=== PATIENT | female | born 1955 | race Hispanic/Latino ===

== ENCOUNTER 2017-05-01 11:31 | Emergency (ER) | payer OTHER ==
[2017-05-01 11:32] VITALS: BMI 33.6
[2017-05-01 14:17] VITALS: RESP 18
--- NOTE | 2017-05-01 14:29 | ED PDOC ---
Arrival/HPI - General Chief Complaint: Fever Time Seen by Provider: 05/01/17 14:15 Historian: Patient - History of Present Illness Narrative History of Present Illness (Text): 05/01/17 14:24 61 year old female, with past medical history of hyperlipidemia and diabetes, presents to the Emergency department complaining of fever, cough and sinus congestion since Monday. Patient informs cough is mostly dry with occasional clear phlegm. Patient denies taking the flu shot this year. Patient additionally complains of mid-lower back pain, which she believes is muscular. Patient denies any chills, nausea, vomiting, diarrhea, abdominal pain, chest pain, shortness of breath, trauma, sick contact or any other complaints. PMD: Dr. Sandoval Time/Duration: < week Symptom Course: Unchanged Activities at Onset: Light Context: Home Past Medical History - Provider Review Nursing Documentation Reviewed: Yes - Pulmonary Hx Respiratory Disorders: No - Neurological Hx Neurological Disorder: No - HEENT Hx HEENT Disorder: No - Renal Hx Renal Disorder: No - Endocrine/Metabolic Hx Diabetes Mellitus Type 2: Yes - Hematological/Oncological Hx Blood Disorders: No - Integumentary Hx Dermatological Disorder: No - Musculoskeletal/Rheumatological Hx Musculoskeletal Disorders: No - Gastrointestinal Hx Gastrointestinal Disorders: No - Genitourinary/Gynecological Hx Genitourinary Disorders: No - Psychiatric Hx Psychophysiologic Disorder: No Hx Substance Use: No - Surgical History Hx Section: Yes - Anesthesia Hx Anesthesia: No Family/Social History - Physician Review Nursing Documentation Reviewed: Yes Family/Social History: No Known Family HX Smoking Status: Light Smoker < 10 Cigarettes Daily Hx Alcohol Use: No Hx Substance Use: No Allergies/Home Meds Allergies/Adverse Reactions: Allergies No Known Allergies Allergy (Verified 09/27/15 13:10) Home Medications: Home Meds Medication Instructions Recorded Confirmed Lovastatin [Lovastatin] 10 mg PO DAILY 05/23/15 09/27/15 metFORMIN [glucOPHAGE] 500 mg PO DAILY 05/23/15 09/27/15 Review of Systems - Physician Review All systems were reviewed & negative as marked: Yes - Review of Systems Constitutional: Fevers Eyes: Normal ENT: Normal Respiratory: Cough. absent: SOB Cardiovascular: Normal. absent: Chest Pain Gastrointestinal: Normal. absent: Abdominal Pain, Diarrhea, Nausea, Vomiting Genitourinary Female: Normal Musculoskeletal: Back Pain Skin: Normal Neurological: Normal Endocrine: Normal Hemo/Lymphatic: Normal Psychiatric: Normal Physical Exam Vital Signs Reviewed: Yes Vital Signs Temp Pulse Resp BP Pulse Ox 05/01/17 19:02 86 18 128/67 98 05/01/17 16:15 98.8 F 99 H 18 132/69 98 05/01/17 14:13 99.3 F 110 H 18 134/72 97 Temperature: Afebrile Blood Pressure: Normal Pulse: Tachycardic Respiratory Rate: Normal Appearance: Positive for: Well-Appearing, Non-Toxic, Comfortable Pain Distress: None Mental Status: Positive for: Alert and Oriented X 3 - Systems Exam Head: Present: Atraumatic, Normocephalic Pupils: Present: PERRL Extroacular Muscles: Present: EOMI Conjunctiva: Present: Normal Mouth: Present: Moist Mucous Membranes Neck: Present: Normal Range of Motion Respiratory/Chest: Present: Clear to Auscultation, Good Air Exchange. No: Respiratory Distress, Accessory Muscle Use Cardiovascular: Present: Regular Rate and Rhythm, Normal S1, S2. No: Murmurs Abdomen: Present: Normal Bowel Sounds. No: Tenderness, Distention, Peritoneal Signs Back: Present: Normal Inspection Upper Extremity: Present: Normal Inspection. No: Cyanosis, Edema Lower Extremity: Present: Normal Inspection. No: Edema Neurological: Present: GCS=15, CN II-XII Intact, Speech Normal Skin: Present: Warm, Dry, Normal Color. No: Rashes Psychiatric: Present: Alert, Oriented x 3, Normal Insight, Normal Concentration Medical Decision Making ED Course and Treatment: 05/01/17 14:31 Impression: 61 year old female presents to the Emergency department for fever, cough, sinus congestion and back pain. Plan: -- Labs -- Chest X-ray -- Toradol -- Influenza A/B -- Urinalysis -- Reassess and disposition Progress Notes: 05/02/17 11:25 cxr neg as read by em . labs unremarkble pt feels beter all symptoms resolve.d asking for dc. - Lab Interpretations Lab Results: 05/01/17 15:30 05/01/17 15:30 Lab Results 05/01/17 15:30: Influenza Typ A,B (EIA) Pos for influenza a H 05/01/17 15:30: Sodium 139, Potassium 4.0, Chloride 103, Carbon Dioxide 26, Anion Gap 14, BUN 13, Creatinine 0.5 L, Est GFR ( Amer) > 60, Est GFR ( Non-Af Amer) > 60, Random Glucose 121 H, Calcium 9.2, Total Bilirubin < 0.1 L, AST 23, ALT 39, Alkaline Phosphatase 68, Total Protein 6.6, Albumin 3.9, Globulin 2.8, Albumin/Globulin Ratio 1.4 05/01/17 15:30: PT 11.2, INR 0.98, APTT 33.9 05/01/17 15:30: WBC 4.8 D, RBC 4.60, Hgb 13.5, Hct 40.8, MCV 88.7, MCH 29.3, MCHC 33.1, RDW 12.6, Plt Count 204, MPV 11.0, Gran % 58.6, Lymph % (Auto) 28.2, [place] % (Auto) 10.9 H, Eos % (Auto) 2.3, Baso % (Auto) 0.0, Gran # 2.79, Lymph # (Auto) 1.3, [place] # (Auto) 0.5, Eos # (Auto) 0.1, Baso # (Auto) 0.00 - RAD Interpretation Radiology Orders: 05/01/17 14:24 CXR [CHEST TWO VIEWS (PA/LAT)] [RAD] Stat - Medication Orders Current Medication Orders: Discontinued Medications Ketorolac Tromethamine (Toradol) 30 mg IVP STAT STA Stop: 05/01/17 14:25 Last Admin: 05/01/17 15:38 Dose: 30 mg MAR Pain Assessment Document 05/01/17 15:38 EQ (Rec: 05/01/17 15:38 EQ [id number]) Pain Reassessment Is this a pain reassessment? No Presence of Pain Presence of Pain Yes IVP Administration Document 05/01/17 15:38 EQ (Rec: 05/01/17 15:38 EQ [id number]) Charges for Administration # of IVP Administrations 1 Oseltamivir Phosphate (Tamiflu Cap) 75 mg PO STAT STA PRN Reason: Protocol Stop: 05/01/17 16:19 Last Admin: 05/01/17 18:26 Dose: 75 mg - Scribe Statement The provider has reviewed the documentation as recorded by the Kiaraibnatalia Ferrell. All medical record entries made by the Scribe were at my direction and personally dictated by me. I have reviewed the chart and agree that the record accurately reflects my personal performance of the history, physical exam, medical decision making, and the department course for this patient. I have also personally directed, reviewed, and agree with the discharge instructions and disposition. Disposition/Present on Arrival - Present on Arrival Any Indicators Present on Arrival: No History of DVT/PE: No History of Uncontrolled Diabetes: No Urinary Catheter: No History of Decub. Ulcer: No History Surgical Site Infection Following: None - Disposition Have Diagnosis and Disposition been Completed?: Yes Diagnosis: Influenza Disposition: HOME/ ROUTINE Disposition Time: 07:00 Condition: STABLE Discharge Instructions (ExitCare): Influenza (ED) Additional Instructions: please follow up with your doctor. return to er with worsening symptoms or concerns. Prescriptions: Oseltamivir Phosphate [Tamiflu] 75 mg PO BID #10 capsule Referrals: Robina Ambrose MD [Primary Care Provider] - Follow up with primary Forms: [facility] (Slovak), WORK NOTE
[2017-05-01 16:04] LABS: EOS # 0.1 (0.0-0.7); EOS % 2.3 % (1.5-5.0); GRAN # 2.79 (1.4-6.5); GRAN % 58.6 % (50.0-68.0); HEMOGLOBIN 13.5 g/dL (12.0-16.0); LYMPH # 1.3 (1.2-3.4); LYMPH % 28.2 % (22.0-35.0); MEAN CELL VOLUME 88.7 fl (80.0-105.0); MEAN CORPUSCULAR HEMOGLOBIN 29.3 pg (25.0-35.0); MEAN CORPUSCULAR HGB CONC 33.1 g/dl (31.0-37.0); MONO # 0.5 (0.1-0.6); MONO % 10.9 % (1.0-6.0); RBC 4.6 10^6/uL (3.5-6.1); RED CELL DISTRIBUTION WIDTH 12.6 % (11.5-14.5); WHITE BLOOD COUNT 4.8 10^3/ul (4.5-11.0)
[2017-05-01 16:08] LABS: ALB/GLOB RATIO 1.4 (1.1-1.8); ALBUMIN 3.9 g/dL (3.0-4.8); ALT/SGPT 39 U/L (7-56); AST/SGOT 23 U/L (14-36); BLOOD UREA NITROGEN 13 mg/dL (7-21); CALCIUM 9.2 mg/dL (8.4-10.5); GFR AFRICAN-AMERICAN > 60; GFR NON-AFRICAN AMERICAN > 60
[2017-05-01 16:10] LABS: INR 0.98 (0.93-1.08); PARTIAL THROMBOPLASTIN TIME 33.9 Seconds (25.1-36.5); PROTHROMBIN TIME 11.2 SECONDS (9.4-12.5)
[2017-05-01 16:16] VITALS: TEMP 98.8; O2SAT 98
[2017-05-01 19:03] VITALS: BP 128/67; PULSE 86
--- NOTE | 2017-05-02 08:33 | RAD ---
HISTORY: cp COMPARISON: No prior. TECHNIQUE: Chest PA and lateral FINDINGS: LUNGS: No active pulmonary disease. PLEURA: No significant pleural effusion identified. No pneumothorax apparent. CARDIOVASCULAR: Normal. OSSEOUS STRUCTURES: No significant abnormalities. VISUALIZED UPPER ABDOMEN: Normal. OTHER FINDINGS: None. IMPRESSION: No active disease.
== END 2017-05-01 19:18 | disposition home or self-care (01) ==
LOC: ED 11:31
DX: J11.1 Influenza due to unidentified influenza virus with other respiratory manifestations (principal); E11.9 Type 2 diabetes mellitus without complications; E78.5 Hyperlipidemia, unspecified; F17.210 Nicotine dependence, cigarettes, uncomplicated
CPT/HCPCS: 71046; 80053; 85025; 85610; 85730; 87804; 96374; 99284; J1885